=== PATIENT | female | born 1945 | race Caucasian/White ===

== ENCOUNTER 2020-04-11 11:20 | Emergency (ER) | payer OTHER, MEDICARE ==
[~2020-04-11] VITALS: Ht 162.6 cm; Wt 127.0 kg
[~2020-04-11 11:20] MED LIST: ADVAIR HFA115 MCG/21; ALBUTEROL2.5 MG/0.1 INH; LANTUS SUBQ; NOVOLOG100 UNIT/1 SUBQ; NYSTATIN 100,0015 G1; OMEPRAZOLE 20 M20 MG PO; PAXIL 20 MG TAB20 M1 PO; PIOGLITAZONE15 MG PO; SIMVASTATIN40 MG PO; TRAMADOL 50 MG50 MG PO; VENTOLIN HFA 1818 GM INH; XARELTO10 M1; ZESTRIL20 MG
[2020-04-11] MEDS ORDERED: TRAMADOL 50 MG50 MG PO (12:55)
[2020-04-11 13:20] VITALS: BP 142/49
== END 2020-04-11 13:41 | disposition home or self-care (01) ==
LOC: ER 11:20
DX: S90.31XA Contusion of right foot, initial encounter (principal); K21.9 Gastro-esophageal reflux disease without esophagitis; E11.9 Type 2 diabetes mellitus without complications; J45.909 Unspecified asthma, uncomplicated; Z90.49 Acquired absence of other specified parts of digestive tract; Z90.89 Acquired absence of other organs; Z79.4 Long term (current) use of insulin; Z79.899 Other long term (current) drug therapy; Z88.0 Allergy status to penicillin; Z88.5 Allergy status to narcotic agent; Z91.018 Allergy to other foods; Z91.041 Radiographic dye allergy status; W20.8XXA Other cause of strike by thrown, projected or falling object, initial encounter; Y93.89 Activity, other specified; Y92.89 Other specified places as the place of occurrence of the external cause; Y99.8 Other external cause status